=== PATIENT | female | born 1985 | race Hispanic/Latino ===

== ENCOUNTER → 2020-02-22 09:37 | Outpatient (CLI) | payer OTHER, SELFPAY ==
--- NOTE | ~2020-02-22 | MMUS_ITS ---
EXAMINATION: MM diagnostic marjorie BI w montrell, US breast RT limited HISTORY: Unspecified lump and pain in the upper outer right breast. TECHNIQUE: Craniocaudal, mediolateral, and mediolateral oblique 3-D tomosynthesis images of the breas ts were performed and synthetic 2-D images were generated. CAD analysis was submitted and interpreted . High resolution limited right breast ultrasound was performed. COMPARISON: 05/06/2017 BREAST PARENCHYMAL COMPOSITION: There are scattered areas of fibroglandular density. FINDINGS: MAMMOGRAPHIC FINDINGS: There is a 1.5 x 0.5 cm low-density circumscribed mass in the posterior third of the outer right [address] st at the 9:00 location 10 cm from the nipple. No suspicious calcification or architectural distortio n are identified in either breast. No left breast mass is identified. ULTRASOUND: There is a 1.3 x 0.6 cm lymph node at the 10:00 location 12 cm from the nipple in the area of the marjorie mographic finding in question. No sonographic correlate is identified for the reported breast pain. IMPRESSION: 1. No specific mammographic or sonographic correlate is identified for the patient's reported breast pain Further evaluation at this time should be based on clinical assessment. Continued follow-up phys ical examination is recommended. BI-RADS Category 2: Benign finding(s). Reviewed, dictated and finalized at location A. IMPRESSION: 1. No specific mammographic or sonographic correlate is identified for the arcenio ent's reported breast pain Further evaluation at this time should be based on c linical assessment. Continued follow-up physical examination is recommended. BI-RADS Category 2: Benign finding(s).
== END ==
PROVIDERS: Visit Provider Advanced Practice Midwife
DX: N63.10 Unspecified lump in the right breast, unspecified quadrant (principal)
CPT/HCPCS: 76642; 77062; 77066; G0279

== ENCOUNTER → 2020-03-08 09:47 | Outpatient (CLI) | payer OTHER, SELFPAY ==
--- NOTE | ~2020-03-08 | US_ITS ---
US abdomen complete DATE: 03/08/2020 10:09 INDICATION: Right lower quadrant abdominal pain, generalized abdominal pain. TECHNIQUE: Real-time imaging and Doppler analysis COMPARISON: None FINDINGS: Hepatic steatosis. No hepatic space-occupying mass lesion. Normal hepatopedal portal venous flow direction. No pancreatic mass lesion. No gallstones, gallbladder wall thickening or abnormal pericholecystic fluid collection. Negative son ographic Chavez's sign. The common bile duct measures 3.6 mm, normal. Normal caliber of the abdominal aorta. Inferior vena cava is unremarkable. Normal splenic size. No renal mass lesion or hydronephrosis. Scanning in the right lower quadrant at the area of clinical complaint of pain reveals no significant finding. IMPRESSION: No significant abnormality Reviewed, dictated and finalized at Location A. Reviewed, dictated and finalized at location A. IMPRESSION: No significant abnormality
== END ==
PROVIDERS: PCP Physician Assistant; Visit Provider Physician Assistant
DX: R10.31 Right lower quadrant pain (principal)
CPT/HCPCS: 76700

== ENCOUNTER 2022-08-17 13:43 | Outpatient (CLI) | payer OTHER, SELFPAY ==
[2022-08-17 15:03] LABS: Hemoglobin 13.7 g/dL (12.0-15.0); Mean Corpuscular HGB Conc 31.9 g/dl (32-36); Mean Corpuscular Hemoglobin 26.1 pg (26-34); Mean Corpuscular Volume 82.1 fl (80-100); Mean Platelet Volume 12.7 fl (7.4-10.4); Platelet Count Result 240 k/mm3 (150-375); Red Blood Count 5.24 M/mm3 (4.2-5.4); Red Cell Distribution Width 14.7 % (11.5-14.5); White Blood Count 8.3 K/mm3 (4.5-10.0)
[2022-08-17 15:22] LABS: Alanine Aminotransferase 55 U/L (6-35); Albumin Level 5.2 g/dL (3.5-5.1); Alkaline Phosphatase 58 U/L (38-126); Anion Gap 10 mmol/L (8-16); Aspartate Amino Transferase 47 U/L (14-36); Bilirubin,Total 1.1 mg/dL (0.2-1.3); Blood Urea Nitrogen 9 mg/dL (7-17); Calcium 9.1 mg/dL (8.4-10.2); Carbon Dioxide 27 mmol/L (22-30); Chloride 101 mmol/L (98-107); Estimated Glomerular Filt Rate > 60; Glucose 95 mg/dL (65-110); Potassium 3.7 mmol/L (3.4-5.0); Sodium 138 mmol/L (137-145)
[2022-08-17 15:43] LABS: Erythrocyte Sedimentation Rate 11 mm/hr (0-20)
[2022-08-17 16:03] LABS: Thyroid Stimulating Hormone Reflex 0.818 uIU/mL (0.465-4.68)
[2022-08-20 20:50] LABS: Gliadin AB, IgG <1.0 U/mL (<15.0); TTG IGA AB <1.0 U/mL (<15.0)
== END 2022-08-17 13:44 | disposition home or self-care (01) ==
PROVIDERS: PCP Physician Assistant; Visit Provider Nurse Practitioner
DX: R10.9 Unspecified abdominal pain (principal); R19.7 Diarrhea, unspecified; K92.1 Melena
CPT/HCPCS: 36415; 80053; 83516; 84443; 85027; 85652; 86140; 86255

== ENCOUNTER 2024-01-04 09:13 | Outpatient (CLI) | payer OTHER, SELFPAY ==
--- NOTE | ~2024-01-04 | MMUS_ITS ---
EXAMINATION: MM diagnostic marjorie BI w montrell, US breast LT limited HISTORY: Left breast lump and redness TECHNIQUE: 3-D tomosynthesis images of the bilateral breasts were performed and synthetic 2-D images were generated. CAD analysis was submitted and interpreted. High resolution limited left breast ultra sound was performed. COMPARISON: 02/22/2020 BREAST PARENCHYMAL COMPOSITION:Not Dense. There are scattered areas of fibroglandular density. FINDINGS: MAMMOGRAPHIC FINDINGS: Parenchymal pattern of both breasts is unchanged. No suspicious mass lesion or distortion seen. Small intramammary lymph node at the upper, outer left breast posteriorly. No suspicious microcalcificatio ns. ULTRASOUND: At the 3:00 position left breast, 7 cm from the nipple, there is a 5 mm area of hypoechogenicity just deep to the skin surface. No other sonographic abnormality seen in the region scanned. IMPRESSION: No evidence for malignancy. 5 mm area of hypoechogenicity just deep to the skin surface at the area of concern left breast, as de tailed above, which could reflect focal inflammatory process. Clinical follow-up advised. BI-RADS Category 2: Benign finding(s). Reviewed, dictated and finalized at location M. IMPRESSION: No evidence for malignancy. 5 mm area of hypoechogenicity just deep to the skin surface at the area of conc paulette left breast, as detailed above, which could reflect focal inflammatory proc ess. Clinical follow-up advised. BI-RADS Category 2: Benign finding(s).
== END 2024-01-04 09:14 ==
PROVIDERS: PCP Physician Assistant; Visit Provider Nurse Practitioner
DX: N61.1 Abscess of the breast and nipple (principal)
CPT/HCPCS: 76642; 77062; 77066; G0279

== ENCOUNTER 2024-08-03 10:55 | Emergency (ER) | payer OTHER, SELFPAY ==
--- NOTE | 2024-08-03 11:06 | ED.URI ---
HPI - URI/Sore Throat General Chief Complaint: Ear Stated Complaint: Sore Throat/Ears Irritation Time Seen by Provider: 08/03/24 11:52 Source: patient and RN notes reviewed Mode of arrival: ambulatory Limitations: no limitations History of Present Illness HPI Narrative: 39-year-old female presents concern for sore throat, nasal congestion, headache, body aches, ear pressure and congestion, cough and feeling feverish. Reports symptoms started yesterday. She has taken Tylenol MD elicited complaint: cough and sore throat Related Data Allergies Allergy/AdvReac Type Severity Reaction Status Date / Time No Known Allergies Allergy Verified 08/03/24 11:35 Review of Systems Review of Systems: CONSTITUTIONAL: Reports malaise, tactile fever. EYES: Denies visual changes, redness, or discharge. ENT: Reports rhinorrhea, congestion, otalgia and sore throat. CARDIOVASCULAR: Denies chest pain, palpitations, or edema. RESPIRATORY: Reports cough. Denies dyspnea. GASTROINTESTINAL: Denies abdominal pain, nausea, vomiting, diarrhea SKIN: Denies rash or itching. MUSCULOSKELETAL: Reports myalgia. NEUROLOGIC: Reports headache. All systems reviewed & are unremarkable except as noted in HPI and below PMFSH Past Medical History Medical History (Updated 08/03/24 @ 11:58 by Mariaelena Veliz NP) NAFLD (nonalcoholic fatty liver disease) Obesity Epigastric pain Hematochezia Abdominal pain Surgical History Surgical History History of tonsillectomy History of delivery Social History Social History (Updated 01/11/24 @ 13:47 by Asiya Hanley) Social History: Caffeine- occasionally Smoking status: Never smoker Alcohol intake: current Alcohol use details: rarely Substance use: never Substance use type: does not use Gender identity (if verbalized by the patient): Female Comments At time of signature, agree with nursing past medical, surgical, social and family history. There is no relevant family history pertinent to the presenting complaint Exam Narrative: GENERAL: Nontoxic-appearing, well-nourished, and in no acute distress. HEAD: Normocephalic EYES: PERRLA, conjunctivae clear ENT: Nares clear. Mucous membranes moist. TM pearly pérez with dull light reflex bilaterally; no tragal tenderness. Oropharynx not erythematous without lesions. Tonsils not enlarged and without exudate, no drooling, no hoarseness, no trismus, uvula midline. NECK: Supple. No lymphadenopathy CHEST: Clear to auscultation, breath sounds equal. No wheezing, rhonchi, rales, or stridor. No respiratory distress, speaks in full sentences. HEART: Regular rate and rhythm. No murmur heard. SKIN: Warm, dry, no rash. NEURO: Alert and oriented x3. PSYCH: Normal mood and affect Course Course Emergency Course: Patient is aware of diagnosis, understands and agrees to treatment plan. Anticipatory guidance given. Patient agrees to follow-up as directed and is aware of reasons to seek care at the emergency department. Portions of this record may have been created with voice recognition software Level of Care: Express Care Visit Vital Signs Vital signs: Reviewed. MDM - URI/Sore Throat MDM Narrative Medical decision making narrative: Differential diagnosis considered: Watt virus, strep pharyngitis, allergic rhinitis, upper respiratory tract infection, sinusitis, rhinosinusitis, nasopharyngitis. viral pharyngitis, otitis media, otitis externa, pneumonia, bronchitis, viral cough syndrome, viral syndrome, and influenza. Exam findings show no acute concerns or changes; patient is non-toxic appearing and is in no distress. Patient is appropriate for outpatient treatment and follow-up. Lab Data Attestation: I reviewed the patient's lab results. Critical Care Time Critical Care Time Critical Care Time: No Discharge Plan Discharge Clinical Impression: Influenza-like illness Patient Disposition: Home, Self-Care Condition: Stable Instructions: Viral Syndrome (ED) Additional Instructions: -Take strict precautions to prevent the spread of your virus. Be diligent about covering your cough (even when you are alone) and washing your hands frequently. -You may contagious until you have been symptom and/or fever free for 24 hours without fever reducing medicine -Alternate Ibuprofen and Tylenol for pain and fever relief (per package directions) -Drink plenty of fluid - drink fluid with electrolytes such as Gatorade or other oral re-hydration solution. Avoid caffeine, which can make dehydration worse. -Get plenty of rest to help your body heal. -Use a cool mist humidifier for chest and nasal congestion. -Eat RAW honey or use cough drops to ease throat discomfort -Do not smoke or expose children to secondhand smoke -Wash your hands frequently. -Please follow-up with your primary care doctor in the next 1-2 days if your symptoms do not improve. -If you have any worsening of symptoms or any other concerns please go to the ED immediately. -Please take medications as prescribed and continue taking your home medications as usual. Patient Language: Ecuadorean Prescriptions: New pseudoephedrine HCl [12 Hour Decongestant] 120 mg tablet extended release 120 mg PO Q12H PRN (Reason: nasal congestion) Qty: 20 0RF dextromethorphan-guaifenesin [Mucinex DM] 60-1,200 mg tablet extended release 12 hr 1 tablet PO Q12H Qty: 12 0RF Follow-up/Referrals: Nghia Amaya MD [Primary Care Provider] - Stand Alone Forms: Work/School Release IP Time of Disposition: 12:01
[2024-08-03 11:15] VITALS: BP 113/75; PULSE 89; RESP 18; O2SAT 98
[2024-08-03 11:52] LABS: EDCOVIDSCREEN Negative (Negative); EDINFLUASCREEN Negative (Negative); EDINFLUBSCREEN Negative (Negative); EDSTREPNEGPOS1 Negative (Negative)
== END 2024-08-03 12:10 | disposition home or self-care (01) ==
PROVIDERS: Emergency Provider Nurse Practitioner; PCP Family Medicine Adolescent Medicine
DX: J11.1 Influenza due to unidentified influenza virus with other respiratory manifestations (principal); K76.0 Fatty (change of) liver, not elsewhere classified; E66.9 Obesity, unspecified; Z68.41 Body mass index [BMI] 40.0-44.9, adult
CPT/HCPCS: 87081; 87426; 87804; 87880; 99213; G0463